=== PATIENT | female | born 1970 | race Two or more races ===

== ENCOUNTER 2021-12-24 07:26 | Day surgery (SDC) | payer OTHER ==
[~2021-12-24] VITALS: Ht 157.5 cm; Wt 78.9 kg
[~2021-12-24 07:26] MED LIST: DULO20CA PO; EMPA1TAB PO; FENO54TA4 PO; GABA100C9 PO; HYDR-4188 OR; LISI20TA28 PO; METF-370 PO; ROPI2TAB31 PO; SULF500T8 PO; TEMA30CA5 PO; TRAZ100T3 PO
[2021-12-24] MEDS ORDERED: LIDOCAINE 2% JELLY 11ml (GLYDO) ONE (08:39)
[2021-12-24] MEDS ORDERED: IOHEXOL 300 MG/ML 100ML BOTTLE IJ ONE (08:39)
[2021-12-24] MEDS ORDERED: fentaNYL CITRATE 100 MCG/2 ML VL ONE (08:43)
[2021-12-24] MEDS ORDERED: MIDAZOLAM HCL 2MG/2ML 2ml VIAL (1mg/ml) ONE (08:43)
[2021-12-24] MEDS ORDERED: PROPOFOL 10 MG/ML 20 ML IV ONE (08:46)
[2021-12-24] MEDS ORDERED: ONDANSETRON HCL 4 MG/2 ML VIAL ONE (08:47)
[2021-12-24] MEDS ORDERED: ROCURONIUM 10MG/ML 10ML VIAL IV ONE (08:48)
[2021-12-24] MEDS ORDERED: SUCCINYLCHOLINE CHLORIDE 20 MG/ML 10ML VIAL IV ONE (08:49)
[2021-12-24] MEDS ORDERED: HYDROmorphone HCL 2 MG/ML VL/or syr IV PRN ×2 (09:15)
[2021-12-24] MEDS ORDERED: ONDANSETRON HCL 4 MG/2 ML VIAL IV PRN (09:15)
[2021-12-24 10:30] VITALS: BP 123/66
== END 2021-12-24 10:40 | disposition home or self-care (01) ==
LOC: SUR 07:26
PROVIDERS: ATTEND Urology
DX: N20.0 Calculus of kidney (principal); N39.3 Stress incontinence (female) (male); I10 Essential (primary) hypertension; E11.9 Type 2 diabetes mellitus without complications; M06.9 Rheumatoid arthritis, unspecified; F41.9 Anxiety disorder, unspecified; F32.A Depression, unspecified; N95.2 Postmenopausal atrophic vaginitis; N23 Unspecified renal colic; Z90.710 Acquired absence of both cervix and uterus; Z98.891 History of uterine scar from previous surgery; Z20.822 Contact with and (suspected) exposure to COVID-19
CPT/HCPCS: 52353; 74018; 76000; 82962; C1769; J0330; J2250; J2405; J2704; J3010; Q9967; U0003

== ENCOUNTER 2022-10-18 06:09 | Day surgery (SDC) | payer OTHER ==
[~2022-10-18] VITALS: Ht 157.5 cm; Wt 81.6 kg
[~2022-10-18 06:09] MED LIST changes: +DULO1CAP6 PO; -DULO20CA PO; -EMPA1TAB PO; +EMPA1TAB3 PO; +GABA-339 PO; -GABA100C9 PO; -LISI20TA28 PO; +LISI20TA56 PO; -METF-370 PO; +METF-490 PO; +PRAM1TAB33 PO; -ROPI2TAB31 PO; +SULF500T57 PO; -SULF500T8 PO; +TEMA15CA PO; -TEMA30CA5 PO; -TRAZ100T3 PO; +TRAZ300T13 PO
[2022-10-18] MEDS ORDERED: ceFAZolin 1GM/50ML 100 ML IV ONE (06:23)
[2022-10-18] MEDS ORDERED: BUPIVACAINE W/ EPINEPH 0.25% INJ 50ML MDV ONE (06:46)
[2022-10-18] MEDS ORDERED: BUPIVACAINE 0.25% INJ 50ML VIAL ONE (06:46)
[2022-10-18] MEDS ORDERED: LIDOCAINE 1% HCL (LOCAL ANESTH.) INJ 20ML MDV ONE (06:51)
[2022-10-18] MEDS ORDERED: LIDOCAINE 2% (LOCAL ANESTH.) PF 5ml SDV ONE (07:12)
[2022-10-18] MEDS ORDERED: GLYCOPYRROLATE 0.2 MG/ML 1ML VIAL ONE (07:12)
[2022-10-18] MEDS ORDERED: PROPOFOL 10 MG/ML 20 ML IV ONE ×2 (07:12→07:29)
[2022-10-18] MEDS ORDERED: DexAMETHasone SOD PHOS 10MG/1ML VIAL INJ ONE (07:12)
[2022-10-18] MEDS ORDERED: ONDANSETRON HCL 4 MG/2 ML VIAL ONE (07:12)
[2022-10-18] MEDS ORDERED: KETOROLAC TROMETH 30 MG/ML 1ML VIAL ONE (07:12)
[2022-10-18] MEDS ORDERED: LABETALOL HCL 5 MG/ML 4ML SYRINGE IV PRN (08:15)
[2022-10-18] MEDS ORDERED: ePHEDrine SULFATE 50 MG/ML AMP IV PRN (08:15)
[2022-10-18] MEDS ORDERED: NALOXONE HCL 0.4 MG/ML VIAL IV PRN (08:15)
[2022-10-18] MEDS ORDERED: FLUMAZENIL 0.1 MG/ML INJ 10ML MDV IV PRN (08:15)
[2022-10-18] MEDS ORDERED: fentaNYL CITRATE 100 MCG/2 ML VL IV PRN (08:15)
[2022-10-18] MEDS ORDERED: oxyCODONE HCL 5MG TAB PO PRN (08:15)
[2022-10-18] MEDS ORDERED: ONDANSETRON HCL 4 MG/2 ML VIAL IV PRN (08:15)
[2022-10-18] MEDS ORDERED: hydrALAZINE HCL 20 MG/ML VL IV PRN (08:15)
[2022-10-18] MEDS: HYDROmorphone HCL 2 MG/ML VL/or syr IV PRN ×3 (08:18→08:39)
[2022-10-18 09:12] VITALS: BP 175/87
== END 2022-10-18 09:21 | disposition home or self-care (01) ==
LOC: SUR 06:09
PROVIDERS: ATTEND Orthopaedic Surgery Adult Reconstructive Orthopaedic Surgery
DX: G56.02 Carpal tunnel syndrome, left upper limb (principal); G56.22 Lesion of ulnar nerve, left upper limb; E11.9 Type 2 diabetes mellitus without complications; I10 Essential (primary) hypertension; E78.5 Hyperlipidemia, unspecified; Z79.84 Long term (current) use of oral hypoglycemic drugs; Z90.710 Acquired absence of both cervix and uterus; Z79.899 Other long term (current) drug therapy; Z98.890 Other specified postprocedural states
CPT/HCPCS: 64718; 64721; 82962; J0690; J1100; J1170; J1885; J2001; J2405; J2704; J3490